=== PATIENT | male | born 2000 | race Caucasian/White ===

== ENCOUNTER 2020-02-21 07:12 | Emergency (ER) | payer OTHER ==
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
[2020-02-21 09:15] LABS: Acetaminophen Less than 6.0 mcg/mL (10.0-30.0); Alcohol 157 mg/dL (Less than 10); Salicylate Less than 8.0 mg/dL (15.0-30.0)
[2020-02-21 09:54] LABS: Amphetamine Not Detected (NotDetected); Barbiturates Screen Not Detected (NotDetected); Benzodiazepine Screen Not Detected (NotDetected); Cocaine Metabolite Screen Not Detected (NotDetected); Medtox Control Line Valid? VALID (VALID); Medtox Reader # READER 4; Methadone Not Detected (NotDetected); Methamphetamine Not Detected (NotDetected); Opiate Screen Not Detected (NotDetected); Oxycodone Screen Not Detected (NotDetected); Phencyclidine (PCP) Not Detected (NotDetected); THC/Cannabinoid Screen Not Detected (NotDetected); Tricyclic Screen Not Detected (NotDetected)
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
== END 2020-02-21 10:06 ==
LOC: EEVIPCON 07:12 → ERS 07:12
DX: S60.012A Contusion of left thumb without damage to nail, initial encounter (principal); S20.212A Contusion of left front wall of thorax, initial encounter; F17.210 Nicotine dependence, cigarettes, uncomplicated; V89.2XXA Person injured in unspecified motor-vehicle accident, traffic, initial encounter
CPT/HCPCS: 80306; 80307